=== PATIENT | female | born 1995 | race Caucasian/White ===

== ENCOUNTER 2019-10-07 16:56 | Emergency (ER) | payer OTHER ==
[2019-10-07] MEDS ORDERED: DIPHENHYDRAMINE 25 MG TAB/CAP ONE (17:23)
[2019-10-07] MEDS ORDERED: predniSONE 20 MG TAB ONE (17:23)
[2019-10-07] MEDS ORDERED: FAMOTIDINE 20 MG TAB ONE (17:24)
--- NOTE | 2019-10-07 17:25 | EDPHYS ---
Physician Documentation [facility] Name: Jennifer Berrios Age: 24 yrs Sex: Female : 1995 Arrival Date: 10/07/2019 Time: 16:58 Bed 30 Private MD: ED Physician Birdie Heath HPI: 10/07 17:21 This 24 yrs old Female presents to ER via Ambulatory with complaints of Rash. [facility] 17:21 The patient's rash thought to be caused by an unknown cause. The rash is located on the jmm body diffusely. Onset: The symptoms/episode began/occurred gradually, 1 day(s) ago. Associated signs and symptoms: Pertinent positives: itching, Pertinent negatives: difficulty breathing, swelling of lips, swelling of throat, swelling of tongue, vomiting, wheezing. 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 - Coronavirus screen:: The patient has NOT traveled to [place], [place], or [place] in the past 14 days. - Social history:: Smoking status: Patient/guardian denies using tobacco. - Ebola Screening: : Patient denies travel to an Ebola-affected area in the 21 days before illness onset. ROS: 17:21 Constitutional: Negative for fever, chills, and weight loss, Cardiovascular: Negative jmm for chest pain, palpitations, and edema, Respiratory: Negative for shortness of breath, cough, wheezing, and pleuritic chest pain. 17:21 Skin: Positive for rash. 17:21 All other systems are negative. Exam: 17:21 Constitutional: This is a well developed, well nourished patient who is awake, alert, jmm and in no acute distress. Head/Face: atraumatic. Eyes: EOMI, no conjunctival erythema appreciated ENT: Moist Mucus Membranes Neck: Trachea midline, Supple Chest/axilla: Normal chest wall appearance and motion. Cardiovascular: Regular rate and rhythm. No edema appreciated Respiratory: Normal respirations, no respiratory distress appreciated Abdomen/GI: Non distended, soft Back: Normal ROM 17:21 Skin: urticaria noted to the upper extremities bilaterally. 17:21 Neuro: Orientation: is normal, Mentation: is normal, Memory: is normal. 17:21 Psych: Behavior/mood is pleasant, cooperative. Vital Signs: 17:06 BP 138 / 85; Pulse 90; Resp 18; Temp 97.7; Pulse Ox 98% on R/A; Weight 68.04 kg (R); aj1 Height 5 ft. 1 in. (154.94 cm) (R); Pain 0/10; 17:06 Body Mass Index 28.34 (68.04 kg, 154.94 cm) aj1 MDM: 17:21 Patient medically screened. gelacio 17:22 Data reviewed: vital signs, nurses notes. Counseling: I had a detailed discussion with gelacio the patient and/or guardian regarding: the historical points, exam findings, and any diagnostic results supporting the discharge/admit diagnosis, the need for outpatient follow up, to return to the emergency department if symptoms worsen or persist or if there are any questions or concerns that arise at home. ED course: Patient is alert and non toxic in appearance in the ED. No pharyngeal edema. No signs of resp distress. I do not suspect anaphylaxis. patient advised to follow up with pcp and otherwise given strict return precautions. Patient understood and agrees with the plan of care. . Administered Medications: 17:27 Drug: Benadryl 50 mg Route: PO; vc 17:28 Drug: predniSONE 60 mg Route: PO; vc 17:28 Drug: Pepcid 20 mg Route: PO; vc Disposition: 18:15 Co-signature as Attending Physician, Birdie Heath MD. ma2 Disposition: 10/07/19 17:24 Discharged to Home. Impression: Urticaria. - Condition is Stable. - Discharge Instructions: Hives. - Prescriptions for Hydroxyzine HCl 25 mg Oral Tablet - take 1 tablet by ORAL route every 6 hours As needed; 30 tablet. Prednisone 20 mg Oral Tablet - take 3 tablet by ORAL route once daily for 5 days; 15 tablet. - Medication Reconciliation Form, Thank You Letter, Antibiotic Education, Prescription Opioid Use, Work release form form. - Follow up: Private Physician; When: 2 - 3 days; Reason: Recheck today's complaints, Continuance of care, Re-evaluation by your physician. Signatures: Alexandra Lyles RN RN aj1 Trevor Hedrick PA PA jmm Alzahri, Mohammad, MD MD ma2 Joan Alicia RN RN vc Corrections: (The following items were deleted from the chart) 17:59 17:24 10/07/2019 17:24 Discharged to Home. Impression: Urticaria. Condition is Stable. vc Forms are Medication Reconciliation Form, Thank You Letter, Antibiotic Education, Prescription Opioid Use. Follow up: Private Physician; When: 2 - 3 days; Reason: Recheck today's complaints, Continuance of care, Re-evaluation by your physician. gelacio
--- NOTE | 2019-10-07 17:25 | ER ---
Nurse's Notes [facility] Name: Jennifer Berrios Age: 24 yrs Sex: Female : 1995 Arrival Date: 10/07/2019 Time: 16:58 Bed 30 Private MD: Diagnosis: Urticaria Presentation: 10/07 17:04 Presenting complaint: Patient states: Yesterday she started having a rash that was aj1 itching on her left shoulder that then spread to her back, side and then her hip. She put on some cortisone cream and toon a Benadryl, when she woke up this morning the rash was gone. She made herself some tea and then she broke out in the rash again on her neck and face. Denies shortness of breath. Denies CP. Transition of care: patient was not received from another setting of care. Onset of symptoms was October 2019. Risk Assessment: Do you want to hurt yourself or someone else? Patient reports no desire to harm self or others. Initial Sepsis Screen: Does the patient meet any 2 criteria? No. Patient's initial sepsis screen is negative. Does the patient have a suspected source of infection? No. Patient's initial sepsis screen is negative. Care prior to arrival: None. 17:04 Method Of Arrival: Ambulatory aj1 17:04 Acuity: NANDO 3 aj1 Triage Assessment: 17:06 General: Appears in no apparent distress. comfortable, Behavior is calm, cooperative, aj1 appropriate for age. Pain: Denies pain. 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 - Coronavirus screen:: The patient has NOT traveled to [place], [place], or [place] in the past 14 days. - Social history:: Smoking status: Patient/guardian denies using tobacco. - Ebola Screening: : Patient denies travel to an Ebola-affected area in the 21 days before illness onset. Screenin:26 Abuse screen: Denies threats or abuse. Nutritional screening: No deficits noted. vc Tuberculosis screening: No symptoms or risk factors identified. Fall Risk None identified. Assessment: 17:29 General: Appears in no apparent distress. uncomfortable, Behavior is calm, cooperative, vc appropriate for age. Pain: Denies pain. Neuro: Level of Consciousness is awake, alert, obeys commands, Oriented to person, place, time, situation. Cardiovascular: Patient's skin is warm and dry. Respiratory: Airway is patent Respiratory effort is even, unlabored, Respiratory pattern is regular, symmetrical. GI: No signs and/or symptoms were reported involving the gastrointestinal system. : No signs and/or symptoms were reported regarding the genitourinary system. EENT: No deficits noted. Derm: Rash noted that is itchy, urticaria. Musculoskeletal: Circulation, motion, and sensation intact. Range of motion: intact in all extremities. 17:50 Reassessment: Patient and/or family updated on plan of care and expected duration. Pain vc level reassessed. Patient is alert, oriented x 3, equal unlabored respirations, skin warm/dry/pink. Patients hives have started to decrease on arms and face. Vital Signs: 17:06 BP 138 / 85; Pulse 90; Resp 18; Temp 97.7; Pulse Ox 98% on R/A; Weight 68.04 kg (R); aj1 Height 5 ft. 1 in. (154.94 cm) (R); Pain 0/10; 17:06 Body Mass Index 28.34 (68.04 kg, 154.94 cm) aj1 ED Course: 16:58 Patient arrived in ED. as 17:03 Trevor Hedrick PA is PHCP. [facility] 17:03 Birdie Heath MD is Attending Physician. [facility] 17:06 Triage completed. aj1 17:06 Arm band placed on Patient placed in an exam room. aj1 17:12 Joan Alicia, ELIE is Primary Nurse. vc 17:27 Patient has correct armband on for positive identification. vc 17:50 No provider procedures requiring assistance completed. Patient did not have IV access vc during this emergency room visit. Administered Medications: 17:27 Drug: Benadryl 50 mg Route: PO; vc 17:28 Drug: predniSONE 60 mg Route: PO; vc 17:28 Drug: Pepcid 20 mg Route: PO; vc Outcome: 17:24 Discharge ordered by . gelacio 17:55 Discharged to home ambulatory, with significant other. 17:55 Condition: improved 17:55 Discharge instructions given to patient, Instructed on discharge instructions, follow up and referral plans. no drinking with medication, no driving heavy equipment, medication usage, Demonstrated understanding of instructions, follow-up care, medications, Prescriptions given X 2. 17:59 Patient left the ED. vc Signatures: Alexandra Lylse RN RN aj1 Trevor Hedrick PA PA jmm Martinez, Amelia as CalcJoan sage RN RN vc
[2019-10-07 18:13] VITALS: BP 138/85; TEMP 97.7; O2SAT 98
== END 2019-10-07 17:59 | disposition home or self-care (01) ==
LOC: ER 16:56
DX: L50.9 Urticaria, unspecified (principal); Z88.0 Allergy status to penicillin
CPT/HCPCS: 99283; J7512